=== PATIENT | female | born 1990 | race Asian ===

== ENCOUNTER 2020-09-25 06:58 | Inpatient (IN) ==
[2020-09-25] MEDS ORDERED: OXYTOCIN 30 UNITS/500 ML BAG IV PRN ×2 (07:21→15:02)
--- NOTE | 2020-09-25 07:26 | History & Physical Report ---
Date of Service September 25, 2020 Assessment & Plan (1) : Admission and Anticipated Discharge Date Admission Date: Noel Hurst is a 30yo here with regular contractions. Will be admitted for labor. - VSS - Labor--pt raji on her own - IVF - Epidural PRN--patient will consider - COVID swab obtained - CBC ordered on admission - Anticipate vaginal delivery Code: Full History of Present Illness Primary Care Provider: NO PCP Noel Hurst is a 30 y/o female currently at 39 5/7 WGA with an CRISTY 09/27/20 as determined by Ultrasound who is here for onset of labor. Her has been uncomplicated to this point. + contractions; + movement; - fluid loss; light spotting this morning Had regular appointments with OB. Transferred care from [place] at 28 weeks, had regular appts there. Blood type: B+ Antibody screen: Negative Rubella: Immune VDRL/RPR: Neg Gonorrhea: Neg Chlamydia: Neg HIV: Neg HbSAg: Neg GBS: Negative 09/03/20 Other screens: cff-DNA: Neg (see scanned documents) CF: Neg SMA: Neg Allergies Allergy/AdvReac Type Severity Reaction Status Date / Time No Known Allergies Allergy Verified 09/23/20 12:18 Home Medications Medication Instructions Recorded Confirmed Type prenat.vits,tra,eja-[id number]-[id number] 1 tab PO DAILY 07/10/20 09/25/20 History breast pump #1 ea 08/13/20 09/23/20 Rx Patient History Medical History Varicella vaccination Surgical History No history of previous surgery Family History Father Diabetes Denies family history of Ovarian cancer Breast cancer Colorectal cancer Social History (Updated 07/10/20 @ 10:00 by Cori Olvera) Smoking Status: Never smoker Preferred Language: Danish Communication Ability: Effective 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 Denies shortness of breath or cough Denies chest pain Denies breast pain Denies dysuria or hematuria Denies leg pain or leg swelling Denies headache or changes in vision Physical Exam Physical Exam: General: Alert, oriented. No acute distress. Cardiac: Regular rate and rhythm, no murmurs/rubs/gallops. Respiratory: Clear to auscultation bilaterally a/p, no wheezes/rales/rhonchi. No increased work of breathing. Symmetrical chest rise. No respiratory distress. Abdomen: Gravid. Vertex position. + heart tones. [+/-] palpable contractions. Pelvic: Dilation 6cm; Effacement 90%; Station -[address] Angulo External FHT and external uterine monitors used; Category I tracing;Mod FHT variability. Lower Extremities: No lower extremity edema or swelling. No deep calf pain. Jones's negative bilaterally. Results & Data ([facility]) Vital Signs (Past 12 Hours) Vital Signs Pulse BP 09/25/20 07:09 90 103/63 Code Status & VTE Plan VTE Prophylaxis Plan VTE Prophylaxis will be ordered: Yes Resident Activity Tracking Resident Involvement: Resident Care Provided Care Provided: OB Delivery
[2020-09-25] MEDS: LACTATED RINGER'S 1,000 ML IV PRN ×2 (07:30→08:35)
[2020-09-25 07:48] LABS: Hematocrit (blood only) 35.4 % (37-47); Hemoglobin 12.3 g/dL (12.0-16.0); Mean Corpuscular Hemoglobin 30.1 pg (25-34); Mean Corpuscular Hgb Conc 34.7 g/dL (32-36); Mean Corpuscular Volume 86.6 fL (80-100); Mean Platelet Volume 10.8 fL (7.4-10.4); Platelet Count 153 K/uL (130-400); RDW Coefficient of Variation 13.9 % (11.5-14.5); RDW Standard Deviation 43.9 fL (36.4-46.3); Red Blood Count 4.09 M/uL (4.2-5.4); White Blood Count 10.95 K/uL (4.8-10.8)
[2020-09-25] MEDS ORDERED: ePHEDrine sulfate 50 MG/ML AMP ONE (07:56)
[2020-09-25] MEDS ORDERED: SODIUM CHLORIDE 0.9% INJ 10 ML VIAL ONE (07:56)
[2020-09-25] MEDS ORDERED: fentaNYL citrate 100 MCG/2 ML VIAL ONE (07:57)
[2020-09-25] MEDS ORDERED: BUPIVACAINE 0.25% 30 ML VIAL ONE (07:57)
[2020-09-25] MEDS ORDERED: fentaNYL 2MCG/ML ROPIVACAINE 1.25MG/ML 100 ML BAG EPI ONE (07:58)
--- NOTE | 2020-09-25 08:42 | Anesthesiology Consultation ---
Date of Service September 25, 2020 Assessment & Plan (1) Encounter for pre-operative examination: Chart Review Chart Review: Acceptable Risk for Surgery and Patient NOT seen in Pre Admission Testing Consults Requested none ASA ASA2 Proposed Anesthesia Anesthesia Type: MAC Risk / Benefits Reviewed With: PT / POA / Parent / Guardian, Accepts Plan and Informed Consent Obtained History Height/Weight Height: 5 ft 2 in Weight: 69.763 kg Allergies Allergy/AdvReac Type Severity Reaction Status Date / Time No Known Allergies Allergy Verified 09/23/20 12:18 Medications Home Medications Medication Instructions Recorded Confirmed Last Taken prenat.vits,tra,sgf-onyz-udfno 1 tab PO DAILY 07/10/20 09/25/20 09/24/20 09:00 breast pump #1 ea 08/13/20 09/23/20 Unknown Active Medications Generic Name Dose Route Start Last Admin Trade Name Freq PRN Reason Stop Dose Admin Lactated Ringer's 1,000 mls @ 125 mls/hr 09/25/20 07:21 09/25/20 08:35 Lr IV 09/27/20 07:20 125 mls/hr .Q8H PRN Administration L&D Protocol Protocol NPO Date Last Intake of Fluids: 09/25/20 Time Last Intake of Fluids: 05:00 Date Last Intake of Solids: 09/24/20 Time Last Intake of Solids: 21:00 Past Medical History Medical History Varicella vaccination Exercise / Class Metabolic Activity II 4-5 Yardwork/Stairs/Walk up hill Past Family History Family History Father Diabetes Denies family history of Ovarian cancer Breast cancer Colorectal cancer Past Surgical History Surgical History No history of previous surgery Past Anesthesia History No Hx of Anesthesia Complications and No Family Hx of Anesthesia Complications History of PONV No Hx of PONV and No Hx of Motion Sickness Social History Smoking Status: Never smoker Physical Exam Vital Signs Last Vital Signs Temp 36.5 C 09/25/20 07:39 Pulse 72 09/25/20 08:39 Resp 18 09/25/20 07:39 BP 94/55 L 09/25/20 08:39 Pulse Ox 98 09/25/20 08:36 ENMT Mouth: no dentition abnormality Thyromental Distance: > or= 3.5 Finger Breadths Mallampati Class: II Neck normal visual inspection Respiratory normal respiratory effort Auscultation: lungs clear to auscultation bilaterally Cardiovascular Rate/Rhythm: regular rate and regular rhythm Psychiatric Orientation: alert Testing Laboratory Results 09/25/20 07:33
[2020-09-25] MEDS ORDERED: ONDANSETRON INJ 2 MG/ML 2 ML VIAL IV PRN (08:46)
[2020-09-25] MEDS ORDERED: NALOXONE HCL 1 MG in SODIUM CHLORIDE 0.9% 1000ML 1,000 ML IV PRN (08:46)
[2020-09-25] MEDS ORDERED: NALOXONE HCL 0.4 MG/1 ML VIAL/CARP IV PRN (08:46)
[2020-09-25] MEDS ORDERED: ePHEDrine sulfate 50 MG/ML AMP IV PRN (08:46)
[2020-09-25] MEDS ORDERED: diphenhydrAMINE 50 MG/ML VIAL IV PRN (08:46)
[2020-09-25] MEDS ORDERED: fentaNYL 2MCG/ML ROPIVACAINE 1.25MG/ML 100 ML BAG EPI PRN (08:46)
--- NOTE | 2020-09-25 09:36 | Labor Progress Brief Note ---
Date of Service September 25, 2020 Subjective Comfortable with epidural Assessment & Plan Admission and Anticipated Discharge Date Admission Date: September 25, 2020 Physical Exam Physical Exam: FHT Cat 1 (baseline 125 mod callum +acc +early dec) [place] Q4-5 AROM copious clear 6/100/0 Results & Data ([facility]) Vital Signs (Past 12 Hours) Vital Signs Temp Pulse Resp BP Pulse Ox 09/25/20 09:31 69 99 09/25/20 09:26 98 H 100 09/25/20 09:21 86 100 09/25/20 09:16 65 99 09/25/20 09:11 99 H 99 09/25/20 09:06 82 99 09/25/20 09:01 68 98 09/25/20 09:00 16 09/25/20 08:56 82 99 09/25/20 08:51 65 99 09/25/20 08:50 72 96/54 L 09/25/20 08:46 68 98 09/25/20 08:45 66 18 102/55 L 09/25/20 08:41 80 98 09/25/20 08:39 72 94/55 L 09/25/20 08:36 75 94/68 L 98 09/25/20 08:35 18 09/25/20 08:32 72 95/53 L 09/25/20 08:31 83 98 09/25/20 08:30 77 92/56 L 09/25/20 08:29 75 100/54 L 09/25/20 08:26 74 98 09/25/20 08:22 78 110/57 L 09/25/20 08:21 86 98 09/25/20 08:16 85 99 09/25/20 08:11 79 99 09/25/20 07:39 97.7 F 18 09/25/20 07:09 90 103/63 Coding Level of Care Code None
--- NOTE | 2020-09-25 14:34 | Delivery Summary ---
Vaginal Delivery Summary Date of Service September 25, 2020 Vaginal Delivery Summary DIAGNOSES: 1. Tello intrauterine at 39w5d gestation. 2. Spontaneous onset of labor. 3. Group B Streptococcus Neg. PROCEDURE: Spontaneous vaginal delivery and repair of second degree laceration. SURGEON: Ibis Angulo MD. STRIPER MACHINE: None. ESTIMATED BLOOD LOSS: 300 mL. COMPLICATIONS: None. PLACENTA: Spontaneous and intact with a 3-vessel cord. DISPOSITION: Stable to labor and delivery. DESCRIPTION: The patient pushed well and brought the head to in MAURO position. The infant's head was allowed to deliver with contraction force and no further active pushing, with the perineum protected during this time. The shoulders delivered easily with a maternal pushing effort. There was no nuchal cord. The left shoulder was anterior. The shoulders and body delivered without any difficulty, and the infant was placed on the maternal abdomen. It was vigorous and moving all extremities, and making respiratory efforts. The cord was doubly clamped by the MD and then cut by the FOB. The placenta delivered spontaneously and was noted to be intact and with a 3VC. The cervix, vagina and perineum were examined and were found to have a second degree la ceration which was repaired using 3-0 vicryl suture. The fundus was firm and lochia minimal immediately after delivery. [facility] Vaginal Delivery Charge Vaginal Delivery Codes: 31207 global code for the antepartum, delivery, and post-
--- NOTE | 2020-09-25 14:57 | Anesthesia Procedure Note ---
Date of Service September 25, 2020 Anesthesia Post Epidural Note Vital Signs Vital Signs: Temp Pulse Resp BP Pulse Ox 36.7 C 86 18 100/57 L 99 09/25/20 12:15 09/25/20 14:50 09/25/20 12:15 09/25/20 14:50 09/25/20 14:06 Notes Mental Status: alert / awake / arousable and participated in evaluation Nausea / Vomiting: adequately controlled Pain: adequately controlled Airway Patency, RR, SpO2: stable & adequate BP & HR: stable & adequate Hydration State: stable & adequate Neuraxial Anesthesia: was administered and sensory block is resolving Anesthetic Complications: no major complications apparent and Pt Satisfied with anesthetic care Epidural: Removed without complications and With tip intact
[2020-09-25] MEDS ORDERED: BENZOCAINE 20% AER SPR 82.5 GM CAN EXT PRN (15:02)
[2020-09-25] MEDS ORDERED: oxyCODONE/ACETAMINOPHEN 5mg/325mg TAB PO PRN (15:02)
[2020-09-25] MEDS ORDERED: DIPHTHERIA/TETANUS/PERTUSSIS 0.5 ML SYR/VIAL IM ONE (15:02)
[2020-09-25] MEDS ORDERED: SUPERCREAM 0.870% 15 GM JAR EXT PRN (15:02)
[2020-09-25] MEDS ORDERED: ACETAMINOPHEN 325 MG TAB PO PRN (15:02)
[2020-09-25] MEDS ORDERED: HYDROCORTISONE ACETATE 25 MG SUPP PR PRN (15:02)
[2020-09-25] MEDS: IBUPROFEN 600 MG TAB PO PRN (17:40)
[2020-09-25] MEDS: DOCUSATE SODIUM 100 MG CAP PO SCH (20:33)
--- NOTE | 2020-09-26 04:39 | Obstetrical Progress Note ---
Date of Service <Nash Muñoz MD - Last Filed: 09/26/20 06:29> September 26, 2020 Assessment & Plan <Nash Muñoz MD - Last Filed: 09/26/20 06:29> (1) : - PNL: Rh pos, RI, GBS neg, COVID neg - Feels well today. Eating well, voiding well, ambulating well - Pain well controlled with ibuprofen 600mg Q4H PRN - Routine care -- OOB, ambulation, diet progression as tolerated - After discharge will have 6 week follow-up with Dr. Angulo Subjective <Nash Muñoz MD - Last Filed: 09/26/20 06:29> Noel is a 30 y/o female who is PPD #1 following at 39 5/7 weeks. She reports feeling well overall this morning. Some abdominal cramping and 2/10 pain well managed on analgesics. Voiding well. Tolerating meals overnight without difficulty. Patient has been able to ambulate some. Is passing gas, has not yet had a bowel movement. Has persistent lochia with some improvement this morning. Currently . Physical Exam <Nash Muñoz MD - Last Filed: 09/26/20 06:29> General: Alert, oriented. No acute distress. Cardiac: Regular rate and rhythm. No murmurs. Respiratory: Clear to auscultation bilaterally a/p, no wheezes/rales/rhonchi. No increased work of breathing. Symmetrical chest rise. No respiratory distress. Abdomen: Soft, nontender, nondistended. Bowel sounds present. Uterus: Uterine fundus firm, palpable ~1 cm below umbilicus. Lower Extremities: No lower extremity edema or swelling. No deep calf pain. Jones's negative bilaterally. Results & Data ([facility]) <Nash Muñoz MD - Last Filed: 09/26/20 06:29> Vital Signs (Past 12 Hours) Vital Signs Temp Pulse Resp BP Pulse Ox 09/26/20 00:00 36.7 C 84 16 96/60 L 98 09/25/20 20:00 36.4 C L 76 16 92/56 L 98 09/25/20 17:15 36.8 C 88 20 94/57 L 96 <Ibis Angulo MD - Last Filed: 09/26/20 08:10> Co-Signing Physician Notes Resident Physician Supervision Note: I interviewed and examined the patient. Discussed with Dr. Fenton and agree with findings and plan as documented in the note. Any exceptions or clarifications are listed here: [ ] Documented By: Ibis Angulo MD, FACOG Resident Activity Tracking <Nash Muñoz MD - Last Filed: 09/26/20 06:29> Resident Involvement: Resident Care Provided Care Provided: OB Delivery
[2020-09-26 06:43] LABS: Hematocrit (blood only) 32.7 % (37-47); Hemoglobin 11.3 g/dL (12.0-16.0); Mean Corpuscular Hemoglobin 30.3 pg (25-34); Mean Corpuscular Hgb Conc 34.6 g/dL (32-36); Mean Corpuscular Volume 87.7 fL (80-100); Mean Platelet Volume 10.9 fL (7.4-10.4); Platelet Count 148 K/uL (130-400); RDW Coefficient of Variation 14.2 % (11.5-14.5); Red Blood Count 3.73 M/uL (4.2-5.4)
[2020-09-26] MEDS: IBUPROFEN 600 MG TAB PO PRN ×2 (08:04→20:46)
[2020-09-26] MEDS: PRENATAL VITAMIN 1 TAB PO SCH (08:04)
[2020-09-26] MEDS: DOCUSATE SODIUM 100 MG CAP PO SCH ×2 (08:04→20:45)
[2020-09-27 06:41] LABS: Hematocrit (blood only) 29.9 % (37-47); Hemoglobin 10.5 g/dL (12.0-16.0)
[2020-09-27] MEDS: PRENATAL VITAMIN 1 TAB PO SCH (08:24)
[2020-09-27] MEDS: DOCUSATE SODIUM 100 MG CAP PO SCH (08:24)
--- NOTE | 2020-09-27 09:55 | Obstetrical Progress Note ---
Date of Service September 27, 2020 Assessment & Plan (1) Encounter for care and examination after delivery: 30yo day 2 s/p . Doing well. Stable for discharge Subjective Ambulation: ambulating normally Voiding: no voiding problems Passing Gas:: Yes Diet Tolerance:: regular diet Lochia:: Moderate Physical Exam Constitutional WD/WN, vitals as above Respiratory normal respiratory effort; no respiratory distress and no labored breathing Gastrointestinal (Abdomen) Inspection/Auscultation: abdomen normal to inspection; abdomen not distended Percussion/Palpation: abdomen soft; abdomen nontender, no guarding and abdomen not rigid Genitourinary OB Exam Abdomen: + fundal height Fundus: + firm and + relation to umbilicus (Below); not tender and not boggy Results & Data ([facility]) Vital Signs (Past 12 Hours) Vital Signs Temp Pulse Resp BP Pulse Ox 09/27/20 07:24 36.5 C 72 18 102/66 96
== END 2020-09-27 16:10 | disposition home or self-care (01) | DRG 807 ==
LOC: OPB 06:58 → 4S1 07:02 → 4S2 16:45

== ENCOUNTER 2020-11-29 08:04 | Observation (INO) ==
[2020-11-29] MEDS ORDERED: SODIUM CHLORIDE 0.9% 1000ML 1,000 ML IV ONE (08:54)
[2020-11-29] MEDS ORDERED: KETOROLAC TROMETHAMINE 15 MG/ML VIAL IV STA (08:54)
--- NOTE | 2020-11-29 09:01 | Emergency Department Note ---
Impression & Plan Acute mastitis of left breast, Abscess of left breast ED Provider Note CHIEF COMPLAINT: Left mastitis HISTORY OF PRESENTING ILLNESS: This is a 30-year-old female who presents to the emergency department by private vehicle with complaint of left breast swelling and pain. The patient states that she is 2 months and has been breast-feeding. She notes that she started noticing some increase soreness in the left breast several days ago and then the area began to become reddened and painful. She saw her HEADER DOCK 2 days ago and was started on dicloxacillin to treat mastitis, she states she has had about 7 doses of this medication so far and feels that her symptoms are getting worse. She does note that she has had some chills and low-grade fevers at home today. She did not take any medication for her symptoms. She states that she called her HEADER [facility] and they directed her to come to the emergency department for evaluation. She states that she has been using her breast pump about every 4 hours, but this is difficult because of the pain. She denies any discharge from the nipple besides breast milk. She states the pain is constant, aching, and she rates the pain 5/10. She denies any headaches, chest pain, chest tightness, shortness of breath, dizziness or syncope, abdominal pain, back pain, nausea, vomiting, loss of appetite, or urinary complaints. REVIEW OF SYSTEMS: A complete 10 point review of systems was reviewed with the patient with pertinent positives and negatives as per history of present illness. All else were negative. PAST MEDICAL HISTORY: No significant past medical or surgical history SOCIAL HISTORY: Lives at home with family, she denies tobacco use ALLERGIES: No known allergies PHYSICAL EXAM: CONSTITUTIONAL: Pleasant and cooperative. Nontoxic-appearing and in no acute distress. Well appearing and well nourished. HEENT: Normocephalic, atraumatic. NECK: Supple, full active range of motion without discomfort. RESPIRATORY: Clear to auscultation bilaterally with no wheezing, crackles, rhonchi or stridor. Equal expansion bilaterally. CARDIOVASCULAR: Regular rate and rhythm with no murmurs, rubs or gallops. Normal peripheral perfusion. No edema. GASTROINTESTINAL: Soft, nontender, nondistended. No palpable masses or HSM. Bowel sounds present in all quadrants. MUSCULOSKELETAL: Full range of motion of all joints without discomfort. INTEGUMENTARY: The left breast appears swollen, erythematous, is warm, tender, and firm to the touch. There is no foul discharge from the nipple. There is an area of fluctuance around the 10 o'clock position adjacent to the areola, no pointing or discharge noted there. No lymphangitic streaking. No other rash or other significant dermatologic conditions noted. NEUROLOGIC: Alert and oriented X 4 with normal affect. Normal strength and sensation in all 4 extremities. Normal speech. Normal gait observed. ED COURSE AND MEDICAL DECISION MAKING: CC: Patient presenting with complaint of left mastitis DIFFERENTIAL DIAGNOSIS: Includes, but not limited to mastitis, cellulitis, abscess, MRSA infection, dehydration, among others. INTERPRETATION OF LABS: Leukocytosis, mild anemia, normal platelets, no significant electrolyte abnormalities, normal renal function, normal liver enzymes. MEDICATION RECONCILIATION: I attest that I have personally reviewed the patient's current medication list. INITIAL VITAL SIGNS REVIEW: I reviewed the patient's initial vital signs and interpret them as follows: T: Afebrile; BP: Normotensive; HR: Within normal limits; RR: Within normal limits; Pulse Ox: Within normal limits on room air. MDM SUMMARY: Patient was evaluated at bedside, history and physical exam performed. Patient is alert and oriented, no acute distress, resting calmly in stretcher. Patient is afebrile and nontoxic-appearing. She does not appear to be significantly dehydrated. The left breast is swollen, erythematous, and tender. There is an area of fluctuance concerning for possible abscess. Orders were placed for labs, IV fluid bolus for hydration as precaution, IV Toradol for pain, ultrasound of the left breast to evaluate for mastitis/abscess. Patient discussed with Dr. Sandoval, who agrees with my assessment, plan, and disposition. Labs and imaging reviewed, labs demonstrate a leukocytosis and otherwise no significant abnormalities. Ultrasound of the left breast shows a complex fluid collection measuring 6.9 x 5.6 x 6.5 cm and appears consistent for an abscess. I spoke on the phone with Dr. Witt, HEADER DOCK, who recommended that the patient be discussed with general surgery for incision and drainage. I spoke with Dr. Zarate, general surgery, who agreed to evaluate the patient. After evaluation he does plan to take the patient to the OR for incision and drainage. Patient reassessed multiple times throughout ED stay, she has remained hemodynamically stable and afebrile and reports her pain is improved with Toradol. She has been noted to have a slightly low blood pressure, but states that she tends to run on the low side and this is normal for her. The patient was updated on all results and plan for surgery for incision and drainage of her abscess, all questions were answered to the best of my ability and the patient was agreeable with this plan. A preop COVID-19 test was ordered. The patient was stable at time of transfer to the OR. The chart was completed utilizing Marfeel Speech voice recognition software. Grammatical errors, random word insertions, pronoun errors, and incomplete sentences are an occasional consequence of this system due to software limitations, ambient noise, and hardware issues. Any formal questions or co ncerns about the content, text, or information contained within the body of this dictation should be directly addressed to the nurse practitioner for clarification. Past Med/Surg History Medical History Varicella vaccination Surgical History No history of previous surgery Family History Father Diabetes Denies family history of Ovarian cancer Breast cancer Colorectal cancer Social History (Updated 07/10/20 @ 10:00 by Cori Olvera) Smoking Status: Never smoker Hx Alcohol Use: No Hx Substance Use: No Preferred Language: Upper Sorbian Communication Ability: Effective Flat Bed Knitter Required: Yes Beliefs That Will Affect Care: None marital status: marital status details: Alycia Quarles (29) [phone] Current Living Situation: Spouse Current Living Situation Comment: lives with spouse, cats-spouse changing litter 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 Safe at Home: Yes Assistive Devices: Glasses Allergies Allergies Allergy/AdvReac Type Severity Reaction Status Date / Time No Known Allergies Allergy Verified 11/29/20 08:37 Home Meds Home Medications Medication Instructions Recorded Confirmed prenat.vits,tra,[id number] 1 tab PO DAILY 07/10/20 11/29/20 Previous Rx's Medication Instructions Recorded norethindrone (contraceptive) 0.35 0.35 mg PO DAILY #28 tab 11/03/20 mg tablet dicloxacillin 500 mg capsule 500 mg PO QID #40 cap 11/27/20 oxycodone 5 - 10 mg PO Q6H PRN #10 tab 11/29/20 Results & Data (ED) Vital Signs Vital Signs - 24 hr 11/29/20 08:07 11/29/20 10:17 11/29/20 10:25 Temperature 36.8 C 37 C Temperature Source Temporal Artery Scan Oral Pulse Rate 98 H Pulse Rate [Apical] Pulse Rate [Finger] 82 Pulse Rhythm Regular Pulse Rhythm [Apical] Pulse Strength Normal Respiratory Rate 20 18 Respiratory Effort / Characteristics Non-Labored Spontaneous Respiratory Depth Normal Respiratory Pattern Regular Blood Pressure 113/72 Blood Pressure [Left Arm] 89/51 L 97/64 L Blood Pressure Mean 85 Blood Pressure Mean [Left Arm] 63 75 Blood Pressure Position Sitting Blood Pressure Position [Left Arm] Pulse Oximetry 98 97 Oxygen Delivery Method Room Air Room Air Oxygen Flow Rate Sepsis Recent Fever Within 48 Hours No Sepsis New/Unexplained Change in Mental Status N/A Sepsis Action Taken by Nursing No Action Required 11/29/20 12:10 11/29/20 13:11 11/29/20 13:20 Temperature 36.4 C L Temperature Source Temporal Artery Scan Pulse Rate Pulse Rate [Apical] 67 67 Pulse Rate [Finger] 81 Pulse Rhythm Pulse Rhythm [Apical] Regular Regular Pulse Strength Respiratory Rate 14 12 13 Respiratory Effort / Characteristics Non-Labored Spontaneous Non-Labored Spontaneous Respiratory Depth Normal Normal Respiratory Pattern Blood Pressure Blood Pressure [Left Arm] 100/52 L 82/55 L 90/52 L Blood Pressure Mean Blood Pressure Mean [Left Arm] 68 64 64 Blood Pressure Position Blood Pressure Position [Left Arm] Lying Semi-fowlers Pulse Oximetry 99 98 98 Oxygen Delivery Method Room Air Oxymask Oxymask Oxygen Flow Rate 4 4 Sepsis Recent Fever Within 48 Hours Sepsis New/Unexplained Change in Mental Status Sepsis Action Taken by Nursing 11/29/20 13:30 11/29/20 13:40 Temperature Temperature Source Pulse Rate Pulse Rate [Apical] 64 69 Pulse Rate [Finger] Pulse Rhythm Pulse Rhythm [Apical] Regular Regular Pulse Strength Respiratory Rate 13 12 Respiratory Effort / Characteristics Non-Labored Spontaneous Non-Labored Spontaneous Respiratory Depth Normal Normal Respiratory Pattern Blood Pressure Blood Pressure [Left Arm] 88/55 L 88/58 L Blood Pressure Mean Blood Pressure Mean [Left Arm] 66 68 Blood Pressure Position Blood Pressure Position [Left Arm] Semi-fowlers Semi-fowlers Pulse Oximetry 98 98 Oxygen Delivery Method Oxymask Room Air Oxygen Flow Rate 4 Sepsis Recent Fever Within 48 Hours Sepsis New/Unexplained Change in Mental Status Sepsis Action Taken by Nursing Laboratory Data Result diagrams: 11/29/20 08:59 11/29/20 08:59 Lab Results 11/29/20 11/29/20 11/29/20 Range/Units 08:59 08:59 10:46 WBC 16.09 H (4.8-10.8) K/uL RBC 4.00 L (4.2-5.4) M/uL Hgb 11.8 L (12.0-16.0) g/dL Hct 35.0 L (37-47) % MCV 87.5 (80-100) fL MCH 29.5 (25-34) pg MCHC 33.7 (32-36) g/dL RDW Std Deviation 42.8 (36.4-46.3) fL RDW Coeff of [place] 13.2 (11.5-14.5) % Plt Count 258 (130-400) K/uL MPV 9.4 (7.4-10.4) fL Immature Gran % (Auto) 0.2 % Neut % (Auto) 81.1 % Lymph % (Auto) 13.1 % Mingo % (Auto) 5.0 % Eos % (Auto) 0.4 % Baso % (Auto) 0.2 % Neut # (Auto) 13.04 H (1.4-6.5) K/uL Lymph # (Auto) 2.10 (1.2-3.4) K/uL Mingo # (Auto) 0.80 H (0.11-0.59) K/uL Eos # (Auto) 0.07 (0-0.5) K/uL Baso # (Auto) 0.04 (0-0.2) K/uL Immature Gran # (Auto) 0.04 H (0.00-0.02) K/uL Sodium 138 (136-145) mmol/L Potassium 3.9 (3.5-5.1) mmol/L Chloride 105 (98-107) mmol/L Carbon Dioxide 27 (21-32) mmol/L Anion Gap 5.0 (3-11) BUN 15 (7-18) mg/dl Creatinine 0.60 (0.6-1.2) mg/dl Est Cr Clr Drug Dosing 119.6 ml/min Est GFR ( Amer) 141.8 ml/min Est GFR (Non-Af Amer) 122.3 ml/min BUN/Creatinine Ratio 25.7 H (10-20) Glucose 83 (70-99) mg/dl Calcium 9.3 (8.5-10.1) mg/dl Total Bilirubin 0.5 (0.2-1) mg/dl AST 48 H (15-37) U/L ALT 77 (12-78) U/L Alkaline Phosphatase 108 (45-117) U/L Total Protein 8.0 (6.4-8.2) gm/dl Albumin 3.2 L (3.4-5.0) gm/dl Globulin 4.8 H (2.5-4.0) gm/dl Albumin/Globulin Ratio 0.7 L (0.9-2) COVID-19 Eval Order Covid19 at [facility] SARS-CoV-2 (PCR) (Negative) 11/29/20 Range/Units 10:46 WBC (4.8-10.8) K/uL RBC (4.2-5.4) M/uL Hgb (12.0-16.0) g/dL Hct (37-47) % MCV (80-100) fL MCH (25-34) pg MCHC (32-36) g/dL RDW Std Deviation (36.4-46.3) fL RDW Coeff of Clayton (11.5-14.5) % Plt Count (130-400) K/uL MPV (7.4-10.4) fL Immature Gran % (Auto) % Neut % (Auto) % Lymph % (Auto) % Mingo % (Auto) % Eos % (Auto) % Baso % (Auto) % Neut # (Auto) (1.4-6.5) K/uL Lymph # (Auto) (1.2-3.4) K/uL M[place] # (Auto) (0.11-0.59) K/uL Eos # (Auto) (0-0.5) K/uL Baso # (Auto) (0-0.2) K/uL Immature Gran # (Auto) (0.00-0.02) K/uL Sodium (136-145) mmol/L Potassium (3.5-5.1) mmol/L Chloride (98-107) mmol/L Carbon Dioxide (21-32) mmol/L Anion Gap (3-11) BUN (7-18) mg/dl Creatinine (0.6-1.2) mg/dl Est Cr Clr Drug Dosing ml/min Est GFR ( Amer) ml/min Est GFR (Non-Af Amer) ml/min BUN/Creatinine Ratio (10-20) Glucose (70-99) mg/dl Calcium (8.5-10.1) mg/dl Total Bilirubin (0.2-1) mg/dl AST (15-37) U/L ALT (12-78) U/L Alkaline Phosphatase (45-117) U/L Total Protein (6.4-8.2) gm/dl Albumin (3.4-5.0) gm/dl Globulin (2.5-4.0) gm/dl Albumin/Globulin Ratio (0.9-2) COVID-19 Eval Order SARS-CoV-2 (PCR) NEGATIVE (Negative) Administered Medications Discontinued Medications Bupivacaine HCl (Bupivacaine 0.5 % 5 Mg/1 Ml Mpf 30ml Vial) Confirm Administered Dose 30 ml .ROUTE .STK-MED ONE Stop: 11/29/20 12:39 Last Admin: 11/29/20 13:00 Dose: 5 ml Documented by: [id number] Sodium Chloride (Nss 1000ml) 1,000 mls @ 999 mls/hr IV .Q1H1M ONE Stop: 11/29/20 09:54 Last Infusion: 11/29/20 10:54 Dose: 0 mls/hr Documented by: [id number] Admin: 11/29/20 09:19 Dose: 999 mls/hr Documented by: [id number] Piperacillin Sod/Tazobactam (Sod 3.375 gm/ Dextrose) 100 ml in 115 mls @ 230 mls/hr IV NOW STA Stop: 11/29/20 11:39 Last Infusion: 11/29/20 12:14 Dose: 0 mls/hr Documented by: [id number] Admin: 11/29/20 11:33 Dose: 230 mls/hr Documented by: [id number] Ketorolac Tromethamine (Ketorolac Tromethamine 15 Mg/Ml Vial) 10 mg IV NOW STA Stop: 11/29/20 08:55 Last Admin: 11/29/20 09:19 Dose: 10 mg Documented by: [id number] Imaging Data Radiologist's Impression: Breast Ultrasound 11/29/20 08:56 ULTRASOUND SOFT TISSUES LEFT BREAST CLINICAL HISTORY: Mastitis. Clinical concern for abscess. COMPARISON STUDY: No priors. FINDINGS: Real-time grayscale and color flow sonography of the soft tissues of the left breast is performed to assess for abscess. There is a multiloculated complex fluid collection identified in the left breast at the indicated site of interest at the 9:00 to 12:00 position. This measures 6.9 x 5.6 x 6.5 cm in aggregate dimension. Peripheral hyperemia is shown color imaging. IMPRESSION: 1. There is a complex fluid collection the left breast at site of interest as detailed above typical for abscess. 2. Note that this does not constitute a breast cancer screening examination. Electronically signed by: Sony Jackson M.D. 11/29/2020 10:00 AM Discharge Plan Visit Data Chief Complaint: Breast Pain/Problems Stated Complaint: PAIN IN LEFT BREAST ED Provider: Dillan Sandoval ED Midlevel Provider: Gris Gaitan Discharge Problem: Acute mastitis of left breast, Abscess of left breast Patient Disposition: Admitted As Inpatient Condition: Good Discharge Instructions Interventions: ED Discharge Assessment Last Done: 11/29/20 12:14
[2020-11-29 09:16] LABS: Basophils # (auto) 0.04 K/uL (0-0.2); Basophils % (auto) 0.2 %; Eosinophils # (auto) 0.07 K/uL (0-0.5); Eosinophils % (auto) 0.4 %; Hemoglobin 11.8 g/dL (12.0-16.0); Immature Granulocytes # (auto) 0.04 K/uL (0.00-0.02); Immature Granulocytes % (auto) 0.2 %; Lymphocytes % (auto) 13.1 %; Mean Corpuscular Hemoglobin 29.5 pg (25-34); Mean Corpuscular Hgb Conc 33.7 g/dL (32-36); Mean Corpuscular Volume 87.5 fL (80-100); Mean Platelet Volume 9.4 fL (7.4-10.4); Neutrophils # (auto) 13.04 K/uL (1.4-6.5); Neutrophils % (auto) 81.1 %; Platelet Count 258 K/uL (130-400); RDW Coefficient of Variation 13.2 % (11.5-14.5); RDW Standard Deviation 42.8 fL (36.4-46.3); White Blood Count 16.09 K/uL (4.8-10.8)
[2020-11-29 09:30] LABS: Est GFR (African American) 141.8 ml/min; Est GFR (Non-African American) 122.3 ml/min; Potassium 3.9 mmol/L (3.5-5.1)
[2020-11-29 09:31] LABS: Albumin Level 3.2 gm/dl (3.4-5.0); BUN Creatinine Ratio 25.7 (10-20); Calcium 9.3 mg/dl (8.5-10.1); Creatinine Clr Calc Pharmacy 119.6 ml/min
[2020-11-29 09:33] LABS: Albumin Globulin Ratio 0.7 (0.9-2); Bilirubin,Total 0.5 mg/dl (0.2-1); Globulin 4.8 gm/dl (2.5-4.0)
--- NOTE | 2020-11-29 10:01 | Ultrasound Report ---
ULTRASOUND SOFT TISSUES LEFT BREAST CLINICAL HISTORY: Mastitis. Clinical concern for abscess. COMPARISON STUDY: No priors. FINDINGS: Real-time grayscale and color flow sonography of the soft tissues of the left breast is per formed to assess for abscess. There is a multiloculated complex fluid collection identified in the le ft breast at the indicated site of interest at the 9:00 to 12:00 position. This measures 6.9 x 5.6 x 6.5 cm in aggregate dimension. Peripheral hyperemia is shown color imaging. IMPRESSION: 1. There is a complex fluid collection the left breast at site of interest as detailed above typical for abscess. 2. Note that this does not constitute a breast cancer screening examination. Electronically signed by: Sony Jackson M.D. 11/29/2020 10:00 AM
[2020-11-29] MEDS ORDERED: PIPERACILL/TAZOBAC CONSULT ACTIVE PRN ×2 (11:02→14:54)
--- NOTE | 2020-11-29 11:08 | History & Physical Report ---
Date of Service November 29, 2020 Assessment & Plan (1) Mastitis, left, acute: For incision and drainage Lt breast abscess IV atbx pre op likely d/c home History of Present Illness Primary Care Provider: NO PCP Pt with Large Lt breast abscess- worsening over 2-3 days has been on doxycycline breast feeding Allergies Allergy/AdvReac Type Severity Reaction Status Date / Time No Known Allergies Allergy Verified 11/29/20 08:37 Home Medications Medication Instructions Recorded Confirmed Type prenat.vits,tra,rqt-[id number] 1 tab PO DAILY 07/10/20 11/29/20 History norethindrone (contraceptive) 0.35 0.35 mg PO DAILY #28 tab 11/03/20 11/29/20 Rx mg tablet dicloxacillin 500 mg capsule 500 mg PO QID #40 cap 11/27/20 11/29/20 Rx Past Med/Surg History Medical History Varicella vaccination Surgical History No history of previous surgery Family History Father Diabetes Denies family history of Ovarian cancer Breast cancer Colorectal cancer Social History (Updated 07/10/20 @ 10:00 by Cori Olvera) Smoking Status: Never smoker Hx Alcohol Use: No Hx Substance Use: No Preferred Language: Wolof Communication Ability: Effective Homemaking Rehabilitation Consultant Required: Yes Beliefs That Will Affect Care: None marital status: marital status details: Alycia Quarles (29) [phone] Current Living Situation: Spouse Current Living Situation Comment: lives with spouse, cats-spouse changing litter 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 Safe at Home: Yes Assistive Devices: Glasses Review of Systems All systems reviewed & are unremarkable except as noted in HPI & below Physical Exam Physical Exam: erythema, induration Lt breast fluctuance at 9-12:00 Constitutional: well developed; no acute distress Eyes: + anicteric sclerae Respiratory: normal respiratory effort; no respiratory distress Cardiovascular: Rate/Rhythm: regular rate Gastrointestinal (Abdomen): Inspection/Auscultation: abdomen not distended Skin: no rashes, warm and dry Neurologic: awake Psychiatric: Orientation: alert Results & Data ([facility]) Vital Signs (Past 12 Hours) Vital Signs Temp Pulse Pulse Resp BP BP Pulse Ox 11/29/20 10:25 37 C 97/64 L 11/29/20 10:17 82 18 89/51 L 97 11/29/20 08:07 36.8 C 98 H 20 113/72 98
[2020-11-29] MEDS ORDERED: PIPERACILLIN/TAZOBACTAM 3.375 GM in DEXTROSE 5% 100 ML/100 ML BAG IV STA (11:10)
[2020-11-29] MEDS ORDERED: MIDAZOLAM HCL 1 MG/ML 2ML VIAL ONE (11:30)
[2020-11-29] MEDS ORDERED: fentaNYL citrate 100 MCG/2 ML VIAL ONE (11:31)
--- NOTE | 2020-11-29 11:45 | Anesthesiology Consultation ---
Date of Service November 29, 2020 Assessment & Plan (1) Encounter for pre-operative examination: Chart Review Chart Review: Acceptable Risk for Surgery History Surgery Operation Date: 11/29/20 12:00 Proposed Procedures p Lumpectomy(Left) - Dima Zarate MD, FACS Height/Weight Height: 5 ft 2 in Weight: 63 kg Allergies Allergy/AdvReac Type Severity Reaction Status Date / Time No Known Allergies Allergy Verified 11/29/20 08:37 Medications Home Medications Medication Instructions Recorded Confirmed Last Taken prenat.vits,tra,[id number]-[id number] 1 tab PO DAILY 07/10/20 11/29/20 11/28/20 norethindrone (contraceptive) 0.35 0.35 mg PO DAILY #28 tab 11/03/20 11/29/20 11/28/20 mg tablet dicloxacillin 500 mg capsule 500 mg PO QID #40 cap 11/27/20 11/29/20 11/29/20 NPO Date Last Intake of Fluids: 11/29/20 Time Last Intake of Fluids: 05:00 Date Last Intake of Solids: 11/28/20 Time Last Intake of Solids: 22:00 Past Medical History Medical History Varicella vaccination Past Family History Family History Father Diabetes Denies family history of Ovarian cancer Breast cancer Colorectal cancer Past Surgical History Surgical History No history of previous surgery Social History Smoking Status: Never smoker Hx Alcohol Use: No Hx Substance Use: No Physical Exam Vital Signs Last Vital Signs Temp 37 C 11/29/20 10:25 Pulse 82 11/29/20 10:17 Resp 18 11/29/20 10:17 BP 97/64 L 11/29/20 10:25 Pulse Ox 97 11/29/20 10:17 Testing Laboratory Results 11/29/20 08:59 11/29/20 08:59
[2020-11-29] MEDS ORDERED: ONDANSETRON INJ 2 MG/ML 2 ML VIAL IV PRN ×2 (12:25→13:22)
[2020-11-29] MEDS ORDERED: fentaNYL citrate 100 MCG/2 ML VIAL IV PRN (12:25)
[2020-11-29] MEDS ORDERED: ATROPINE SULFATE 0.1 MG/ML 10ML SYR IV PRN (12:25)
[2020-11-29] MEDS ORDERED: BUPIVACAINE 0.5 % 5 MG/1 ML MPF 30ML VIAL ONE (12:38)
--- NOTE | 2020-11-29 13:01 | Post Operative Brief Note ---
PG Immediate Post Op with CF Date of Surgery November 29, 2020 Pre & Post Diagnosis Operation Date: 11/29/20 12:00 Pre-Op Diagnosis: Mastitis, left, acute Post-Op Diagnosis: Mastitis, left, acute, left breast abscess I identified the patient and participated in the time-out.: Yes Procedure Operation Date: 11/29/20 12:00 Actual Procedures p Left Breast Abcess Incision and Drainage (Left) - Dima Zarate MD, FACS Surgeon Dima Zarate MD, FACS Therapeutic Massage Technician nurses Estimated Blood Loss 10 Findings Consistent with Post-Op Diagnosis Specimens Specimen Description: culture 1. Left Breast Abcess Drains [place] Drain
[2020-11-29] MEDS ORDERED: LIDOCAINE 2% 2 ML VIAL/AMP(20MG/ML) INFIL ONE (13:02)
[2020-11-29] MEDS ORDERED: PROPOFOL IV EMULSION 10 MG/ML 20 ML VIAL IV ONE (13:02)
[2020-11-29] MEDS ORDERED: ONDANSETRON INJ 2 MG/ML 2 ML VIAL ONE (13:02)
[2020-11-29] MEDS ORDERED: DEXAMETHASONE SOD INJ 4 MG/ML VIAL ONE (13:02)
[2020-11-29] MEDS ORDERED: IBUPROFEN 600 MG TAB PO PRN (13:23)
[2020-11-29] MEDS ORDERED: ACETAMINOPHEN 325 MG TAB PO PRN (13:23)
[2020-11-29] MEDS ORDERED: oxyCODONE HCL IR 5 MG TAB (IMMEDIATE RELEASE) PO PRN (13:23)
[2020-11-29] MEDS ORDERED: ACETAMINOPHEN 1,000 MG/100 ML VIAL IV ONE (13:23)
[2020-11-29] MEDS ORDERED: SODIUM CHLORIDE 0.9% 1000ML 1,000 ML IV SCH (13:30)
--- NOTE | 2020-11-29 14:52 | Operative Report (OR) ---
DATE OF OPERATION: 11/29/2020 NAME OF OPERATION: Incision and drainage of left breast abscess with Giovana drain placement. PREOPERATIVE DIAGNOSIS: Left breast abscess. POSTOPERATIVE DIAGNOSIS: Left breast abscess. STAFF SURGEON: Dima Zarate MD. ANESTHESIA: General. DESCRIPTION OF PROCEDURE: The patient was brought in the operating room and placed on the operating table in supine position. Her left breast was prepped and draped in usual fashion. I used 0.5% plain Marcaine to anesthetize the left periareolar area at the 10 o'clock position. I used a needle to aspirate purulent fluid, which was cultured. I then made an incision in the areola and laterally carrying dissection down encountering a very deep 7 cm abscess, which was drained and then irrigated. A half-inch piece of Giovana drain was placed, secured to the skin using 4-0 nylon suture with the incision partially closed using 4-0 nylon suture. Dressing was applied and the patient transferred to recovery area in stable condition. I attest to the content of the Intraoperative Record and any orders documented therein. Any exception s are noted below.
--- NOTE | 2020-11-29 15:30 | Anesthesiology Progress Note ---
Date of Service November 29, 2020 Anesthesia Post Procedure Vital Signs Vital Signs: Temp Pulse Pulse Pulse Resp BP BP 11/29/20 15:00 36.5 C 63 16 90/62 L 11/29/20 14:30 36.7 C 62 16 91/61 L 11/29/20 14:19 62 19 92/61 L 11/29/20 14:10 62 17 92/61 L 11/29/20 14:00 36.8 C 60 22 91/57 L 11/29/20 13:50 63 20 92/58 L 11/29/20 13:40 69 12 88/58 L 11/29/20 13:30 64 13 88/55 L 11/29/20 13:20 67 13 90/52 L 11/29/20 13:11 36.4 C L 67 12 82/55 L 11/29/20 12:10 81 14 100/52 L 11/29/20 10:25 37 C 97/64 L 11/29/20 10:17 82 18 89/51 L 11/29/20 08:07 36.8 C 98 H 20 113/72 Pulse Ox 11/29/20 15:00 97 11/29/20 14:30 98 11/29/20 14:19 96 11/29/20 14:10 96 11/29/20 14:00 96 11/29/20 13:50 96 11/29/20 13:40 98 11/29/20 13:30 98 11/29/20 13:20 98 11/29/20 13:11 98 11/29/20 12:10 99 11/29/20 10:25 11/29/20 10:17 97 11/29/20 08:07 98 Pain Intensity Left Breast: Pain Intensity: 5 Transfer of Care Handoff Completed per policy Notes Mental Status: alert / awake / arousable Patient Amnestic to Procedure: Yes Nausea / Vomiting: adequately controlled Pain: adequately controlled Airway Patency, RR, SpO2: stable & adequate BP & HR: stable & adequate Hydration State: stable & adequate Anesthetic Complications: no major complications apparent
[2020-11-29] MEDS: PIPERACILLIN/TAZOBACTAM 3.375 GM in DEXTROSE 5% 100 ML IV SCH (16:53)
[2020-11-30] MEDS: PIPERACILLIN/TAZOBACTAM 3.375 GM in DEXTROSE 5% 100 ML IV SCH (00:43)
[2020-11-30 06:13] LABS: Est GFR (African American) 148.6 ml/min; Est GFR (Non-African American) 128.2 ml/min
[2020-11-30] MEDS ORDERED: PRENATAL VITAMIN 1 TAB PO SCH (09:00)
--- NOTE | 2020-11-30 10:57 | Discharge Summary (DS) ---
PRINCIPAL DIAGNOSIS: Large left breast abscess. PROCEDURES: The patient underwent incision and drainage of left breast abscess. HISTORY OF PRESENT ILLNESS: The patient is a 30-year-old female brought into the Emergency Room with worsening left breast abscess. The patient is breast feeding. She was taken to the operating room on 11/29/2020 where she underwent incision and drainage of a large deep breast abscess. She had a drain placed. She has done well overnight with good wound care with the help of the nurses and pumping. She has been on IV antibiotics and is felt stable for discharge to home to be followed later in the week in the surgical office.
== END 2020-11-30 08:45 | disposition home or self-care (01) ==
LOC: ED 08:04 → 4N 12:15 → ASU 12:15
DX: N61.1 Abscess of the breast and nipple